=== PATIENT | male | born 1960 | race Caucasian/White ===

== ENCOUNTER 2019-11-22 06:37 | Emergency (ER) | payer MEDICARE ==
[2019-11-22] MEDS ORDERED: Sodium Chloride Irrig Solution 250 ML BOT ONE (07:06)
[2019-11-22] MEDS ORDERED: Lidocaine 1% w/Epinephrine 1:100K 20 ML VIAL ONE (07:24)
[2019-11-22] MEDS ORDERED: Triple Antibiotic Oint 1 GM Packet ONE (07:41)
[2019-11-22] MEDS ORDERED: Adacel (T-DAP) 0.5 ML SYRINGE ONE (07:41)
== END 2019-11-22 08:00 | disposition home or self-care (01) ==
LOC: MADERS 06:37
DX: S51.812A Laceration without foreign body of left forearm, initial encounter (principal); F17.210 Nicotine dependence, cigarettes, uncomplicated; Z23 Encounter for immunization; X58.XXXA Exposure to other specified factors, initial encounter
CPT/HCPCS: 12002; 90471; 90715

== ENCOUNTER 2020-05-02 08:11 | Emergency (ER) | payer MEDICARE ==
[2020-05-02] MEDS ORDERED: Sodium Chloride 0.9% 1,000 ML ONE ×2 (08:49→11:44)
[2020-05-02] MEDS ORDERED: Ondansetron PF 4 MG/2 ML Vial ONE (08:49)
[2020-05-02] MEDS ORDERED: Ketorolac Tromethamine 30 MG/ML VIAL ONE (08:49)
[2020-05-02 09:55] LABS: #Lymphocytes 1.1 thou/uL (1.20-3.40); #Monocytes 0.8 thou/uL (0.11-0.59); #Neutrophils 6.7 thou/uL (1.40-6.50); %Basophils 0.4 % (0.0-1.0); %Eosinophils 0.1 % (0.0-10.0); %Lymphocytes 12.2 % (21.0-51.0); %Neutrophils 78.3 % (42.0-75.0); ALT (SGPT) 18 U/L (8-55); AST (SGOT) 14 U/L (5-34); Albumin 4.4 g/dL (3.5-5.0); Alkaline Phosphatase 52 U/L (40-110); Anion Gap 20 mmol/L (10-20); BUN (Urea Nitrogen) 28 mg/dL (8.4-25.7); Bilirubin, Total 1.6 mg/dL (0.2-1.2); CK (CPK) 40 U/L (30-200); Calc. Creatinine Clearance 0 mL/min (70-130); Calcium 9.3 mg/dL (7.8-10.44); Carbon Dioxide 27 mmol/L (22-29); Chloride 85 mmol/L (98-107); Estimated GFR-MDRD 56; Globulin 3.2 g/dL (2.4-3.5); Glucose 141 mg/dL (70-105); Hemoglobin 17.2 g/dL (14.0-18.0); Lipase 8 U/L (8-78); Mean Corpuscular HGB CONC 34.2 g/dL (32.0-36.0); Mean Corpuscular Hemoglobin 34.1 pg (27.0-31.0); Mean Corpuscular Volume 99.6 fL (78.0-98.0); Mean Platelet Volume 5.9 fL (7.4-10.4); Platelet Count 362 thou/uL (130-400); Potassium 4.7 mmol/L (3.5-5.1); Protein, Total 7.6 g/dL (6.0-8.3); RBC Distribution Width 10.1 % (11.5-14.5); Red Blood Cell (RBC) Count 5.05 mill/uL (4.70-6.10); Sodium 127 mmol/L (136-145); White Blood Cell (WBC) Count 8.6 thou/uL (4.8-10.8)
[2020-05-02] MEDS ORDERED: Multivit, Adult Inj 10 ML VIAL ONE (10:09)
[2020-05-02] MEDS ORDERED: Thiamine HCl 200 MG/2 ML VIAL ONE (10:09)
[2020-05-02] MEDS ORDERED: Dextrose 5 %-0.45 % NaCl 1,000 ML ONE (10:09)
--- NOTE | 2020-05-02 11:11 | CT ---
CT Abdomen Pelvis W Con: 05/02/2020 8:44 AM CLINICAL INFORMATION: Abdominal pain and vomiting COMPARISON: None. TECHNIQUE: Multiple contiguous axial images were obtained and a CT of the abdomen and pelvis with IV contrast. C oronal and sagittal reformats were performed. FINDINGS: Lower Chest: Small hiatal hernia. Abdomen: Liver: Subcentimeter hypodensity in the liver likely represents a cyst. Bile Ducts: Normal caliber. Gallbladder: No calcified gallstones. Normal caliber wall. Pancreas: 1.1 cm hypodensity in the pancreatic tail could represent a small cyst. Spleen: within normal limits. Adrenals: within normal limits. Kidneys: within normal limits. Pelvis: Reproductive Organs: No pelvic masses. Ureters: within normal limits. Bladder: within normal limits. Peritoneum: No free air is seen. Small amount of free fluid is seen in the pelvis. Bowel: Multiple distended loops of small bowel are seen measuring up to 3.9 cm in size. There are dec ompressed distal small bowel loops with an apparent transition point in the right lower quadrant of the abdomen. The colon is decompressed. Mesentery and Retroperitoneum: No enlarged mesenteric or retroperitoneal lymph nodes. Vessels: Atherosclerotic calcifications. Abdominal Wall: Patient has a large left hydrocele. Bones: Degenerative changes in the spine. IMPRESSION: 1. Small bowel obstruction with likely transition point in the right lower quadrant of the abdomen 2. Left hydrocele 3. Hypodensity in the pancreatic tail should be followed with repeat CT in 6 months to ensure stabili ty.
[2020-05-02] MEDS ORDERED: Iopamidol 370 76% 100 ML VIAL ONE (12:02)
[2020-05-02 13:20] LABS: Bilirubin Negative (Negative); Blood, Urine Trace (Negative); Clarity Clear (Clear); Glucose, Urine (Dipstick) 100 mg/dL (Negative); Ketone, Urine Negative (Negative); Leukocyte Negative (Negative); Nitrite Negative (Negative); Protein, Urine (Dipstick) 30 mg/dL (Neg-Trace); Urobilinogen 0.2 mg/dL (Less than 2)
[2020-05-02 13:23] LABS: RBC/HPF 0-3 HPF (0-3); Squamous Epithelial 0-3 HPF (0-3); WBC/HPF 0-3 HPF (0-3)
[2020-05-02 13:24] LABS: Bacteria/HPF Rare-Few HPF (None Seen)
== END 2020-05-02 13:05 | disposition short-term general hospital (02) ==
LOC: MADERS 08:11
DX: K56.609 Unspecified intestinal obstruction, unspecified as to partial versus complete obstruction (principal); E87.1 Hypo-osmolality and hyponatremia; F17.210 Nicotine dependence, cigarettes, uncomplicated
CPT/HCPCS: 74177; 80053; 81003; 81015; 82550; 83605; 83690; 84484; 85025; 93005; 96361; 96365; 96375; J1885; J2405; J3411; J7042; J7050; Q9967

== ENCOUNTER 2020-10-17 16:35 | Emergency (ER) | payer MEDICARE ==
[2020-10-17 17:04] LABS: PTT 25.6 sec (22.9-36.1)
[2020-10-17 17:08] LABS: INR-International Normal Ratio 0.9; Prothrombin Time 12.1 sec (12.0-14.7)
[2020-10-17 17:14] LABS: ALT (SGPT) 10 U/L (8-55); AST (SGOT) 20 U/L (5-34); Albumin 4.1 g/dL (3.4-4.8); Alkaline Phosphatase 63 U/L (40-110); Anion Gap 17 mmol/L (10-20); BUN (Urea Nitrogen) 5 mg/dL (8.4-25.7); Bilirubin, Total 0.7 mg/dL (0.2-1.2); Calc. Creatinine Clearance 0 mL/min (70-130); Calcium 8.7 mg/dL (7.8-10.44); Carbon Dioxide 22 mmol/L (23-31); Chloride 96 mmol/L (98-107); Glucose 86 mg/dL (80-115); Potassium 3.9 mmol/L (3.5-5.1); Protein, Total 7.1 g/dL (5.8-8.1); Sodium 131 mmol/L (136-145)
[2020-10-17 17:18] LABS: Hemoglobin 16.6 g/dL (14.0-18.0); Mean Corpuscular HGB CONC 34.6 g/dL (32.0-36.0); Mean Corpuscular Hemoglobin 32.4 pg (27.0-31.0); Mean Corpuscular Volume 93.4 fL (78.0-98.0); Mean Platelet Volume 5.2 fL (7.4-10.4); Platelet Count 325 thou/uL (130-400); RBC Distribution Width 11.5 % (11.5-14.5); Red Blood Cell (RBC) Count 5.13 mill/uL (4.70-6.10)
[2020-10-17 17:19] LABS: Eosinophils 4 % (0-10); Lymphocytes 12 % (21-51); MDiff Complete? YES; Monocytes 5 % (0-10); Neutrophil 54 % (42-75); Platelet Morphology Comment Appears Adequate; RBC Morphology Normal; Reactive Lymphocytes 25 % (0-10)
--- NOTE | 2020-10-17 17:23 | CT ---
CT BRAIN NONCONTRAST: 10/17/20 HISTORY: 60-year-old male with numbness and paresthesia of right face and right arm. COMPARISON: None. FINDINGS: There is no midline shift or any other mass effect. There is no evidence of acute intracranial hemor rhage, large cortical infarct, obstructive hydrocephalus, or extraaxial fluid collection. The calvar ium is intact. There is diffuse parenchymal volume loss. There are low attenuation areas in the whi te matter. These are nonspecific, but in a patient of this age, they are probably chronic ischemic w ravi matter changes due to microvascular atherosclerosis. There is an approximately 1 x 1.5 cm patch of low attenuation consistent with infarction, of indeterminate age, favor chronic, at the left periv entricular white matter, holden radiata. A small portion of this involves the adjacent left caudate n ucleus. There is partial visualization of posterior element metallic hardware at C1 atlas. IMPRESSION: 1) No acute intracranial findings. 2) Involutional changes and chronic ischemic white matter changes. 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 jn [] POS: JIN
[2020-10-17] MEDS ORDERED: Aspirin Chewable 81 MG TAB ONE (17:28)
[2020-10-17 17:32] LABS: CKMB 2.6 ng/mL (0-6.6)
== END 2020-10-17 19:23 | disposition short-term general hospital (02) ==
LOC: MADERS 16:35
DX: G45.9 Transient cerebral ischemic attack, unspecified (principal); R79.89 Other specified abnormal findings of blood chemistry; R29.701 NIHSS score 1; F17.210 Nicotine dependence, cigarettes, uncomplicated; K56.609 Unspecified intestinal obstruction, unspecified as to partial versus complete obstruction; Z79.899 Other long term (current) drug therapy
CPT/HCPCS: 36416; 70450; 80053; 82553; 84484; 85025; 85610; 85730; 93005

== ENCOUNTER 2021-10-13 05:32 | Emergency (ER) | payer OTHER, MEDICARE ==
[2021-10-13] MEDS ORDERED: Iopamidol 370 76% 125 ML VIAL FS ONE (05:33)
[2021-10-13] MEDS ORDERED: Sodium Chloride 0.9% 100 ML BAG IVPB ONE (05:33)
[2021-10-13 06:20] LABS: #Basophils 0.1 thou/uL (0.0-0.2); #Eosinphils 0.1 thou/uL (0.0-0.7); #Lymphocytes 1.8 thou/uL (1.20-3.40); #Monocytes 0.7 thou/uL (0.11-0.59); #Neutrophils 8.9 thou/uL (1.40-6.50); %Basophils 1.2 % (0.0-1.0); %Eosinophils 1.1 % (0.0-10.0); %Lymphocytes 15.1 % (21.0-51.0); %Neutrophils 76.6 % (42.0-75.0); Hemoglobin 16.2 g/dL (14.0-18.0); Mean Corpuscular HGB CONC 34.2 g/dL (32.0-36.0); Mean Corpuscular Hemoglobin 33.4 pg (27.0-31.0); Mean Corpuscular Volume 97.5 fL (78.0-98.0); Mean Platelet Volume 5.8 fL (7.4-10.4); Platelet Count 294 thou/uL (130-400); RBC Distribution Width 11.1 % (11.5-14.5); Red Blood Cell (RBC) Count 4.85 mill/uL (4.70-6.10); White Blood Cell (WBC) Count 11.7 thou/uL (4.8-10.8)
[2021-10-13 06:54] LABS: ALT (SGPT) 30 U/L (8-55); AST (SGOT) 26 U/L (5-34); Albumin 4.5 g/dL (3.4-4.8); Alkaline Phosphatase 53 U/L (40-110); Anion Gap 19 mmol/L (10-20); BUN (Urea Nitrogen) 4 mg/dL (8.4-25.7); Bilirubin, Total 1.5 mg/dL (0.2-1.2); Calc. Creatinine Clearance 0 mL/min (70-130); Calcium 8.8 mg/dL (7.8-10.44); Carbon Dioxide 20 mmol/L (23-31); Chloride 93 mmol/L (98-107); Globulin 2.6 g/dL (2.4-3.5); Glucose 110 mg/dL (80-115); Potassium 4.7 mmol/L (3.5-5.1); Protein, Total 7.1 g/dL (5.8-8.1); Sodium 127 mmol/L (136-145)
[2021-10-13] MEDS ORDERED: Lactated Ringer's 1,000 ML ONE (07:41)
[2021-10-13] MEDS ORDERED: Ibuprofen 400 MG TAB ONE (09:35)
== END 2021-10-13 09:42 | disposition home or self-care (01) ==
LOC: MADERS 05:32
DX: S42.022A Displaced fracture of shaft of left clavicle, initial encounter for closed fracture (principal); E87.1 Hypo-osmolality and hyponatremia; E78.5 Hyperlipidemia, unspecified; E78.00 Pure hypercholesterolemia, unspecified; F17.210 Nicotine dependence, cigarettes, uncomplicated; Z79.82 Long term (current) use of aspirin; Z79.899 Other long term (current) drug therapy; W01.0XXA Fall on same level from slipping, tripping and stumbling without subsequent striking against object, initial encounter
CPT/HCPCS: 23500; 70498; 80053; 85025; J7120; Q9967